=== PATIENT | male | born 1950 | race Caucasian/White ===

== ENCOUNTER 2018-12-27 10:20 | Inpatient (IN) | payer OTHER, MEDICARE ==
[~2018-12-27] VITALS: Ht 170.2 cm; Wt 84.5 kg
[2018-12-27] VITALS (28 sets, daily range): BP systolic 79–110; BP diastolic 24–80
[~2018-12-27 10:20] MED LIST: ADULT LOW DOSE81 MG PO; CARVEDILOL25 MG PO; COUMADIN 5 MG TA5 M1 PO; CRESTOR5 MG PO; HYDROCODONE-AP1 EAC6 PO; KEFLEX500 MG PO; LOVENOX; OMEPRAZOLE20 MG PO; VALIUM5 MG PO; VASOTEC5 MG PO
[2018-12-27 10:45] LABS: BASOPHILS 0.6 % (0.0-2.0); EOSINOPHILS 0.6 % (0.0-3.0); HEMATOCRIT 24.7 % (42.0-52.0); HEMOGLOBIN 8.1 gm/dL (14.0-18.0); LYMPHOCYTES 17.7 % (24.0-44.0); MCH 32.4 pg (26.0-34.0); MCHC 32.7 g/dL (28.0-37.0); MCV 99.2 fL (80.0-100.0); MONOCYTES 5.7 % (1.0-8.0); PLATELET COUNT 225 thou/uL (150-400); POLYS 75.4 % (36.0-66.0); RBC 2.49 mil/uL (4.50-6.00); RDW 17.5 % (10.5-14.5); WBC 13.3 thou/uL (4.0-11.0)
[2018-12-27 10:54] LABS: APTT 33.1 Seconds (24.5-32.8); INR 2.3; PROTIME 23.6 Seconds (9.3-11.4)
[2018-12-27 10:55] LABS: ALBUMIN 2.8 g/dL (3.4-5.0); CREATININE 1.6 mg/dL (0.7-1.3); POTASSIUM 4.5 mmol/L (3.5-5.1); TOTAL BILIRUBIN 0.4 mg/dL (<0.1-1.0); TOTAL PROTEIN 6.4 g/dL (6.4-8.2)
[2018-12-27 11:00] LABS: CALCIUM 8.8 mg/dL (8.5-10.1)
[2018-12-27] MEDS ORDERED: OCUVITE TABLET1 EAC1 PO (11:03)
[2018-12-27] MEDS ORDERED: IRON325 PO (11:03)
[2018-12-27] MEDS ORDERED: ZOCOR20 MG PO (11:03)
[2018-12-27] MEDS ORDERED: ZINC30 MG PO (11:04)
--- NOTE | 2018-12-27 11:04 | NUR ---
PT. RECTAL TEMPERATURE =94.8. ESSIE WHITFIELD MADE AWARE. IV ACCESS TEAM IN ROOM TO INSERT SECOND IV.
[2018-12-27 11:20] LABS: ANISOCYTOSIS 1+; LARGE PLATELETS FEW
--- NOTE | 2018-12-27 12:05 | NUR ---
DR. ASH HERE TO SPEAK WITH PATIENT.
--- NOTE | 2018-12-27 12:46 | NUR ---
PT. RECEIVING 1ST UNIT PRBC ORDERED. WILL CONT. TO MONITOR CLOSELY AND ASSESS FOR ANY CHANGES
--- NOTE | 2018-12-27 13:31 | NUR ---
PT. CONT. IN ER. PT. APPEARS TO BE STABILIZING PRBC ARE INFUSING. PT. ORAL TEMP. IS 97.4 AT THIS TIME. PRIOR TO TRANSFUSION, PT. RECTAL TEMP. WAS 96.1. PT. REPORTS HE IS WARMING UP AND IS NOT COLD HE WAS WITH ARRIVAL.
--- NOTE | 2018-12-27 14:07 | NUR ---
ATTEMPTED TO CALL REPORT TO ICU. TOLD RECEIVING RN WILL CALL BACK.
[2018-12-27 17:39] LABS: INR 2.2; PROTIME 22.4 Seconds (9.3-11.4)
[2018-12-27 18:00] LABS: URINE BILIRUBIN NEGATIVE (Negative); URINE BLOOD NEGATIVE (Negative); URINE CLARITY CLEAR; URINE COLOR YELLOW; URINE GLUCOSE-RANDOM* NEGATIVE (Negative); URINE KETONES NEGATIVE (Negative); URINE LEUKOCYTES-REFLEX NEGATIVE (Negative); URINE NITRITE-REFLEX NEGATIVE (Negative); URINE PROTEIN (DIPSTICK) TRACE (Negative); URINE SPECIFIC GRAVITY >= 1.030 (1.005-1.035); URINE UROBILINOGEN 0.2 E.U./dl (0.2-1.0)
--- NOTE | 2018-12-27 19:38 | NUR ---
Patient arrived to room 239 from ED via cart. Arrives awake, alert, denies pain, nausea, or shortness of breath. First unit of PRBCs had finished from ED nurse prior to arrival, saline flush infusing. Continues on protonix gtt as ordered. BP soft, but MAP > 60 initially, trending down slightly as the afternoon went on. Repeat labs done, hgb dropped, little change in INR following vitamin K. Brother Ed at bedside, answered all questions. Patient has had 2 bloody episodes from rectum, clots noted. Report given to oncoming RN. Continue to monitor.
[2018-12-27] MEDS ORDERED: AMBIEN 5 MG TABL5 M1 PO (19:59)
[2018-12-27] MEDS ORDERED: CENTRUM SILVER1 EAC4 PO (20:00)
[2018-12-28] VITALS (62 sets, daily range): BP systolic 80–159; BP diastolic 28–104
[2018-12-28 00:58] LABS: HEMATOCRIT 21.6 % (42.0-52.0); HEMOGLOBIN 7.2 gm/dL (14.0-18.0)
[2018-12-28 00:59] LABS: INR 1.5; PROTIME 15.7 Seconds (9.3-11.4)
[2018-12-28 01:01] LABS: CALCIUM 7.8 mg/dL (8.5-10.1); CREATININE 1.4 mg/dL (0.7-1.3); MAGNESIUM 1.5 mg/dL (1.8-2.4); POTASSIUM 4.1 mmol/L (3.5-5.1)
--- NOTE | 2018-12-28 06:04 | NUR ---
RECEIVED CALL FROM DIRECT RADIOLOGY- [facility] RADIOLOGY SCAN RESULTS. "ABNORMAL BLEEDING WITH ACTIVE BLEEDIN GIN RIGHT LOWER QUADRANT IN EXPECTED LOCATION OF THE SECUM" THIS RN CALLED ICU, POD 1 AND GAVE RESULTS TO INFORMATION SYSTEMS PROFESSOR
[2018-12-28 06:08] LABS: HEMOGLOBIN 6.6 gm/dL (14.0-18.0)
[2018-12-28 06:11] LABS: HEMATOCRIT 19.6 % (42.0-52.0)
[2018-12-28 06:20] LABS: INR 1.3; PROTIME 13.2 Seconds (9.3-11.4)
--- NOTE | 2018-12-28 08:00 | NUR ---
PT ADMITTED YESTERDAY FOR GI BLEED. ASSUMED CARE OF PT AT 1900. UNIT OF PRBC AND UNIT OF FFP TRANSFUSED. PT'S BP SOFT, BUT IMPROVED SLOWLY WITH TRANSFUSIONS. PT HAD TWO MAROON BMs EARLIER IN THE SHIFT. GI CALLED AND UPDATED ON PT'S CONDITION. BLEEDING SCAN ORDERED. NUC MED CAME IN AND PREFORMED BLEEDING SCAN AROUND 0200. RESULTS OF ABNORMAL BLEEDING SCAN WITH ACTIVE BLEEDING CALLED TO ICU SHORTLY AFTER 0600. RESULTS CALLED TO DR. ROSS, WHO SUGGESTED WE CONTACT DR. ASH AFTER 0700 TO DECIDE ON THE PLAN OF CARE. DR. ASH CALLED AT 0800, SPOKE TO ANSWERING SERVICE, WHO WILL PAGE PHYSICIAN. PT'S HGB 6.6 THIS MORNING. RESULTS REPORTED TO KI SUMMERS; ORDERS TO TRANSFUSE 1 UNIT PRBC AND HOLD 2 MORE UNITS OF PRBC. PT'S BP MUCH IMPROVED, WITH THE MAP CONSISTENTLY OVER 65. WILL CONTINUE TO MONITOR.
[2018-12-28 11:47] LABS: HEMATOCRIT 22.2 % (42.0-52.0); HEMOGLOBIN 7.4 gm/dL (14.0-18.0)
--- NOTE | 2018-12-28 11:50 | EKG ---
[address] [address] ELECTROCARDIOGRAM REPORT Name: ENMABHAVANISHENCHI Siomara Room #: 239-P ADM IN M.R.#: [id number] ������������������ Admission: 12/27/18 ������������������ Attend Phys: Marizol Pepe Discharge: ������������������ Date of : 50 Report #: [id number] ����������������������������������������������������������������� [id number] THIS REPORT FOR: //name// [facility] ED Test Date: 2018-12-27 Test Time: 10:36:54 Pat Name: CHI MENARD Department: Room: Gender: M Environmental Compliance Inspector: 12 : 1950 Requested By: Jennifer Garcia Order Number: [id number] MD: Mihai Pan Measurements Intervals Parnell Rate: 79 P: 45 GA: 170 QRS: -69 QRSD: 87 T: 159 QT: 407 QTc: 467 Interpretive Statements Sinus rhythm Inferior infarct, old Abnrm T, consider ischemia, anterolateral lds Compared to ECG 01/10/2010 08:02:54 Myocardial infarct finding still present Electronically Signed On 12-28-2018 11:50:43 CDT by Mihai Pan [email or web address] ��������������������������������������������� <ELECTRONICALLY SIGNED> ���������������������������������������� By: Mihai Pan MD ��������������������������������������������� 12/28/18 1150 35 Mihai Pan MD /GREZGORZ
[2018-12-28 17:30] LABS: HEMATOCRIT 21.4 % (42.0-52.0); HEMOGLOBIN 7.4 gm/dL (14.0-18.0)
[2018-12-28 17:44] LABS: APTT 27.8 Seconds (24.5-32.8); INR 1.1; PROTIME 11.4 Seconds (9.3-11.4)
--- NOTE | 2018-12-28 19:59 | NUR ---
SHIFT SUMMARY PATIENT STATUS IMPROVED THROUGHOUT THE DAY. MAP IMPROVED. HEMAGLOBIN STABLE AT 7.4 AFTER 1UPRBC'S INFUSED. HEPARIN DRIP STARTED THIS EVENING FOR INR OF 1.1 AND PATIENT HAS A PROSTETIC MITRAL VALVE. DR ASH IN THIS AM AND DISCUSSED POC TO INCLUDE A COLONOSCOPY ON 12/29. ORDERS NOTED. ZOFRAN GIVEN AND GOLYTE STARTED. PATIENT CONSUMING DRINK WITHOUT NAUSEA OR EMESIS. PATIENT HAD 2 BLOODY STOOLS TODAY. LESS RESTLESS THIS AFTERNOON. VISITING WITH BROTHER AND WATCHING TV. REASSURANCE GIVEN AND QUESTIONS ANSWERED.
[2018-12-28 22:46] LABS: HEMATOCRIT 21.8 % (42.0-52.0); HEMOGLOBIN 7.4 gm/dL (14.0-18.0)
[2018-12-29] VITALS (29 sets, daily range): BP systolic 123–160; BP diastolic 55–97
--- NOTE | 2018-12-29 02:05 | NUR ---
ASSUMED CARE OF PT AT 1900 YESTERDAY. PT SCHEDULED TO HAVE COLONOSCOPY TODAY. PREP COMPLETED, PT HAS HAD SEVERAL LARGE LIQUID BMs; LAST BM WAS A LIGHT BROWN/MAROON-CLOSE TO CLEAR. NPO SINCE MN. HEPARIN GTT STARTED AT THE BEGINNING OF THE SHIFT. APTT BEING DRAWN NOW, WILL ADJUST THE GTT ACCORDINGLY. Q4H H&H-LAST HGB WAS 7.4, NO TRANSFUSION INDICATED. PT NEEDED AN ADDITIONAL IV AND WAS DIFFICULT TO START ONE AND DRAW LABS. PICC LINE ORDERED FOR IN THE MORNING. WILL CONTINUE TO MONITOR.
[2018-12-29 02:20] LABS: HEMOGLOBIN 7.1 gm/dL (14.0-18.0); MCH 31.2 pg (26.0-34.0); MCHC 33.8 g/dL (28.0-37.0); RBC 2.28 mil/uL (4.50-6.00); RDW 19.3 % (10.5-14.5); WBC 11.1 thou/uL (4.0-11.0)
[2018-12-29 02:21] LABS: MCV 92.1 fL (80.0-100.0)
[2018-12-29 02:32] LABS: ALBUMIN 2.8 g/dL (3.4-5.0); CREATININE 1.2 mg/dL (0.7-1.3); MAGNESIUM 1.8 mg/dL (1.8-2.4); PHOSPHORUS 3.2 mg/dL (2.5-4.9); POTASSIUM 4.1 mmol/L (3.5-5.1)
[2018-12-29 02:34] LABS: PROTIME 10.8 Seconds (9.3-11.4)
[2018-12-29 02:37] LABS: APTT 38.5 Seconds (24.5-32.8)
[2018-12-29 05:56] LABS: HEMOGLOBIN 6.9 gm/dL (14.0-18.0)
[2018-12-29 06:01] LABS: HEMATOCRIT 19.7 % (42.0-52.0)
--- NOTE | 2018-12-29 07:03 | NUR ---
NO SIGNS OF BLEEDING THE REMAINDER OF THE NIGHT. PT'S BMs THIS MORNING WERE YELLOW/CLEAR AND LIQUID. CRITICAL HCT AND HGB 6.9 THIS MORNING. CRITICAL RESULTS CALLED TO KULWINDER BARTH NP. PT ALREADY HAS ORDER TO TRANSFUSE 1 UNIT PRBCs IF HBG < 7.0. IMPORT AND EXPORT CLERK APPROVED WAITING TILL PT HAS PICC LINE PLACED TO TRANSFUSE, DUE TO LACK OF ACCESS. APTT 38.5 EARLIER THIS MORNING, HEPARIN GTT INCREASED PER PROTOCOL; NO BOLUS GIVEN-PT IS TO HAVE NO HEPARIN BOLUSES. PT REMAINS ON PROTONIX GTT. PT WILL HAVE COLONOSCOPY TODAY. WILL CONTINUE TO MONITOR.
[2018-12-29 12:26] LABS: HEMATOCRIT 24.1 % (42.0-52.0); HEMOGLOBIN 8.4 gm/dL (14.0-18.0)
[2018-12-29 12:30] LABS: MAGNESIUM 1.9 mg/dL (1.8-2.4)
--- NOTE | 2018-12-29 13:36 | NUR ---
ASSUMED CARE OF PT AT 0700. PLAN FOR LOWER GI SCOPE TODAY. NPO SINCE MIDNIGHT. PT UPSET AND SAYS THAT HE IS STARVING. HEPARIN GTT OFF AT 0800, MUST BE OFF X4H BEFORE SCOPE. CHANGE PROTONIX TO BID AND GIVEN 1X LASIX. GI PANS FOR NOON SCOPE. ISSUE FINDING LATEST INTERROGATION OF AICD, SCOPE PUSHED BACK TO 1400. PT NOT HAPPY AND THREATENED TO LEAVE AMA. I ENCOURAGED PT TO STAY AND GET SCOPE SO THAT HE WOULD BE BETTER WHEN HE DC HOME. GI REHABILITATION THERAPY TECHNICIAN CAME TO SPEAK WITH PT, HE IS MORE CALM NOW. WANTS A CHEESEBURGER. HANDED OFF PT TO MARIA DEL CARMEN FOR THE REST OF THE DAY.
--- NOTE | 2018-12-29 13:45 | NUR ---
ASSUMED CARE AT 1330. REPORT RECIEVED FROM KUSUM BRUCE. AWAKE AND ALERT, WAITING FOR TRANSPORT TO TAKE HIM FOR COLONOSCOPY. SR ON MONITOR. NO COMPLAINTS OF PAIN OR NAUSEA OR DIZZINESS. WILL CONTINUE TO MONITOR
--- NOTE | 2018-12-29 15:32 | NUR ---
PT ADMITTED RELATED TO RECTAL BLEEDING. CM REVIEWED CHART AND SPOKE WITH CARE TEAM. CM MET WITH PT AT BEDSIDE THIS DAY. PT IS A&O X4. CM ROLE INTRODUCED. PT INDICATED HE HAD BEEN LIVING IN A HOUSE, APARTMENT, AND ANOTHER SETTING DIGITAL PRODUCTION ARTIST. 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 PT INDICATED HE SEES [facility]OL DIE MAKER GOLDEN SCOTT FOR HIS PCP. PT INDICATED HE PLANS TO RETURN TO HIS PRIOR LIVING SETTING ONCE MEDICALLY STABLE. PT INDICATED HE WAS FRUSTRATED THAT HIS COLONOSCOPY WAS DELAYED A FEW TIMES THIS DAY. CM INDICATED THAT CM COULD NOTIFY PATIENT REP MILES TO FOLLOW UP WITH HIS REGARDING CONCERNS. CM CALLED AND NOTIFIED MILES. HE WILL FOLLOW UP WITH PT AFTER HIS PROCEDURE. CM TO FOLLOW INDICATED WITH DC PLANNING.
[2018-12-29 19:26] LABS: HEMATOCRIT 23.1 % (42.0-52.0); HEMOGLOBIN 8.1 gm/dL (14.0-18.0)
--- NOTE | 2018-12-29 19:26 | NUR ---
COLONOSCOPY COMPLETED, 2 AVM'S IN CECUM CAUTERIZED AND SOME POLYPS REMOVED. HEART HEALTHY DIET. RICHARD TLC WITH ALL PORTS PATENT AND GOOD BLOOD RETURN. OOB WITH STANDBY TO BSC.
[2018-12-30] VITALS (19 sets, daily range): BP systolic 111–165; BP diastolic 39–79
--- NOTE | 2018-12-30 05:24 | NUR ---
[facility] PT STATES HE FEELS GOOD, READY TO GO HOME. VS WNL DURING NOC. NO STOOLS, N/V. COLT PO FLUIDS. VOIDS PER URINAL. AM LABS PENDING. CONT PLAN OF CARE
[2018-12-30 05:33] LABS: HEMOGLOBIN 7.6 gm/dL (14.0-18.0); MCH 31.4 pg (26.0-34.0); MCHC 34.6 g/dL (28.0-37.0); MCV 90.5 fL (80.0-100.0); RBC 2.43 mil/uL (4.50-6.00); RDW 18.4 % (10.5-14.5); WBC 8.8 thou/uL (4.0-11.0)
[2018-12-30 05:35] LABS: CALCIUM 8.1 mg/dL (8.5-10.1); CREATININE 1.1 mg/dL (0.7-1.3); POTASSIUM 3.6 mmol/L (3.5-5.1)
[2018-12-30 05:37] LABS: PROTIME 10.7 Seconds (9.3-11.4)
--- NOTE | 2018-12-30 13:36 | P ---
[facility] [place] [address] [address] PROCEDURE REPORT Name: CHI MENARD V Room #: 239-P [facility] IN M.R.#: [id number] Admission: 12/27/18 ������������������ Attend Phys: Marizol Pepe Discharge: ������������������ Date of : 50 Report #: [id number] THIS REPORT FOR: //name// CC: [facility] physician/PCP Marizol Pepe BRIEF HISTORY: The patient is a 68-year-old male who presented with GI bleeding, on anticoagulation. Bleeding scan was positive in the cecum/ascending colon. He has a history of cecal and ascending colon AVM, treated by Dr. Knutson several years ago. PREOPERATIVE DIAGNOSIS: Recurrent gastrointestinal bleeding, on anticoagulation. POSTOPERATIVE DIAGNOSES: 1. Cecal AVMs x 2. 2. Multiple colon polyps. 3. Rectal polyp. 4. Diverticulosis coli. MEDICATIONS: Deep sedation with propofol per anesthesia. SPECIMENS: 1. Proximal ascending colon polyps x 2. 2. Polyp, hepatic flexure. 3. Polyps, transverse colon x 2. 4. Rectal polyp. ESTIMATED BLOOD LOSS: 5 mL. PROCEDURE: Colonoscopy to cecum and terminal ileum, with snare polypectomy, biopsy and hemostasis. FINDINGS: Prior to propofol sedation, procedure of colonoscopy was discussed with the patient as well as potential risks and its complications. He indicates he understands and desires to proceed. With the patient in the left lateral decubitus position, digital examination was completed, which revealed no abnormalities. Subsequently, the Olympus video colonoscope was introduced into the rectum and advanced under direct vision to the cecum. Done with minimal difficulty. The cecum was identified by the ileocecal valve and the appendiceal orifice. I was able to advance the tip of the scope into the mouth of the ileocecal valve and I could see villi, but due to looping, the scope would not pass deeply into the ileum. At that point, the scope was slowly withdrawn and careful circumferential views obtained. Upon slow withdrawal of the scope, there were some limitations with bilious material in the proximal colon. We were able to clean much this up and overall [facility] [address] [place] [address] PROCEDURE REPORT Name: CHI MENARD V Room #: 239-P [facility] IN M.R.#: [id number] Admission: 12/27/18 ������������������ Attend Phys: Marizol Pepe Discharge: ������������������ Date of : 50 Report #: [id number] reasonably good prep was obtained. The mucosa was within normal limits, normal vascular pattern, normal light reflex. In the cecum, 2 AVMs were seen. Neither one of them were bleeding. The largest was about 7-8 mm. The other was about 5 mm. The largest one treated first and with application of the BiCap, there was some oozing of bright red blood. This was quickly controlled and bleeding was not an issue. The second one was treated without any bleeding whatsoever. Both of them were destroyed with a BiCap probe. As we withdrew the scope, 2 polyps were seen in the ascending colon. They were both about 5 mm in size, removed by cold snare polypectomy. A diminutive polyp was removed from hepatic flexure and 2 diminutive polyps removed from the mid transverse colon. Scope was further withdrawn and there was noted to be moderate sigmoid diverticular disease without endoscopic evidence of diverticulitis. In the rectum, a 5-6 mm sessile polyp was seen and removed by cold snare polypectomy. Scope was further withdrawn, no additional abnormalities were seen. Upon retroflexion, no abnormalities were seen. Scope was withdrawn and the patient tolerated the procedure well. CONDITION OF THE PATIENT UPON DISCHARGE: Following the procedure, the patient drowsy, aroused, conversant and will be discharged home when fully ambulatory. INSTRUCTIONS TO THE PATIENT AND FAMILY AT THE TIME OF DISCHARGE: Nonbleeding AVMs were seen. They have been noted before in the past. These correlate with the abnormal bleeding scan. They were of significant size and likely the sites of his recent bleeding. He also had multiple polyps removed today. We will follow up the path and make further recommendations. In summary, if three or more polyps are adenomas, return in 3 years; if only 1 or 2 adenomas, then 5 years; if by chance none are adenomas, then 10 years would be indicated. The patient has been on anticoagulation. Ideally, we would like to hold anticoagulation for a short period of time since multiple polyps were removed and BiCap cautery was used in the patient's colon. ��������������������������������������������� <ELECTRONICALLY SIGNED> ���������������������������������������� By: Tarik Godinez MD ��������������������������������������������� 12/30/18 1336 1635 0113 Tarik Godinez MD /nt
[2018-12-30 16:48] LABS: HEMATOCRIT 22.3 % (42.0-52.0); HEMOGLOBIN 7.7 gm/dL (14.0-18.0)
--- NOTE | 2018-12-30 18:39 | NUR ---
PATIENT A&O X 4, PLEASANT AND COOPERATIVE WITH CARES. DENIES PAIN. PATIENT ON HEPARIN DRIP AT THIS TIME, APTT STILL NOT THERAPUTIC AT THIS TIME. WILL CONTINUE TO MONITOR.NO BLOODY STOOLS NOTED. HGB IS STABLE AT THIS TIME. PATIENT HAS GOOD APPETITE. ADEQUATE URINE OUTPUT. NO FURTHER CONCERNS AT THIS TIME. WILL CONTINUE TO MONITOR AND CARE PER PLAN OF CARE.
--- NOTE | 2018-12-30 22:31 | NUR ---
GCS 15. A&O X3-4. FORGETFUL. FC, MCKENNA. SINUS RHYTHM, V PACED AT TIMES. O2 SAT > 96% ON 2L PER NC. DENIES SOA. NO BM SO FAR THIS SHIFT. PT PASSING FLATUS. VOIDS PER URINAL. ADEQUATE URINE OUTPUT. UP TO BSC X1 ASSIST. PT ROUTINELY RE-EDUCATED RE: FALL PREVENTION. HIGH RISK FALL PRECAUTIONS IN PLACE. TITRATING HEPARIN GTT PER PROTOCOL. VITAL SIGNS AND ASSESSMENTS DOCUMENTED. WILL CONTINUE TO MONITOR.
[2018-12-31] VITALS (22 sets, daily range): BP systolic 105–162; BP diastolic 53–81
[2018-12-31 05:13] LABS: HEMATOCRIT 22.4 % (42.0-52.0); HEMOGLOBIN 7.7 gm/dL (14.0-18.0); MCH 31.6 pg (26.0-34.0); MCHC 34.4 g/dL (28.0-37.0); MCV 91.8 fL (80.0-100.0); RBC 2.44 mil/uL (4.50-6.00); RDW 18.6 % (10.5-14.5); WBC 8.6 thou/uL (4.0-11.0)
[2018-12-31 05:17] LABS: PROTIME 10.7 Seconds (9.3-11.4)
--- NOTE | 2018-12-31 10:01 | HC ---
[facility] [place] [address] [place] [address] CONSULTATION Name: CHI MENARD V Room #: 239-P ADM IN M.R.#: [id number] Admission: 12/27/18 ������������������ Attend Phys: Marizol Pepe Discharge: ������������������ Date of : 50 Report #: [id number] THIS REPORT FOR: //name// CC: [facility] physician/PCP Marizol Pepe DATE OF SERVICE: 12/27/2018 CARDIOLOGY CONSULTATION INDICATION: GI bleed/anticoagulation therapy. HISTORY OF PRESENT ILLNESS: This is a 68-year-old gentleman well known to our service. He has a prior history of inferior wall NV with severe mitral regurgitation undergoing 1-vessel CABG and mechanical mitral valve replacement in 2008. History of ischemic cardiomyopathy, hypertension, ICD, paroxysmal atrial fibrillation, GI bleed, hypercholesterolemia and peripheral vascular disease. He presents with complaints of bloody stools for the past day or so. From a cardiac standpoint, he remained stable with no complaints of angina, dyspnea or lightheadedness. On initial evaluation, the hemoglobin was 8.1, down to 6.6 today. The initial INR was 2.3, in the therapeutic range. PAST MEDICAL HISTORY: CABG and MVR in 2008. Nuclear stress test from November 2018 revealed inferolateral infarct, EF of 35% -40%. ICD, PAF. Prior history of lower GI bleed, attributed to AVMs, hypertension and peripheral vascular disease. ALLERGIES: INCLUDE AUGMENTIN AND BACTRIM. MEDICATIONS AT HOME: Include aspirin 81, Coreg 25 twice a day, Vasotec 5 mg b.i.d., Prilosec, simvastatin 20 mg at night, warfarin as directed. SOCIAL HISTORY: Denies tobacco use. FAMILY HISTORY: Negative for premature CAD. REVIEW OF SYSTEMS: A full 10-point review of systems performed. Only the pertinent positives and negatives are described in the HPI. PHYSICAL EXAMINATION: VITAL SIGNS: Blood pressure is 118/70, heart rate is 70 beats per minute. GENERAL APPEARANCE: This is a well-developed, well-nourished male, in no acute distress. HEENT: Normocephalic, atraumatic. Oral mucosa moist. NECK: Supple. LUNGS: Clear to auscultation. [facility] [address] [place] [address] CONSULTATION Name: DERIANCHI Siomara Room #: 239-P [facility] IN [facility].#: [id number] Admission: 12/27/18 ������������������ Attend Phys: Marizol Pepe Discharge: ������������������ Date of : 50 Report #: [id number] CARDIAC: Regular rate and rhythm, S1, S2 positive. ABDOMEN: Soft, nontender. EXTREMITIES: No cyanosis, no edema. ECG reveals sinus rhythm, T-wave inversions laterally. LABORATORY VALUES: Hemoglobin 6.6 from today. INR is 1.5. Creatinine is 1.4. ASSESSMENT AND PLAN: 1. Lower gastrointestinal bleed, warfarin and aspirin are on hold. He was given FFP and is currently undergoing a transfusion. Await gastroenterology evaluation. 2. Mechanical mitral valve replacement, stable with no complaints of dyspnea or congestion. Recent echocardiogram reveals a normal functioning valve. Anticoagulation is temporarily on hold for now until his bleeding issues have resolved. 3. Coronary artery disease/myocardial infarction, coronary artery bypass graft, stable with no anginal complaints. 4. Paroxysmal atrial fibrillation, remains in sinus rhythm. 5. Hypercholesterolemia, continue statin therapy. ��������������������������������������������� <ELECTRONICALLY SIGNED> ���������������������������������������� By: Mihai Pan MD ��������������������������������������������� 12/31/18 1001 0948 2210 Mihai Pan MD /nt
--- NOTE | 2018-12-31 10:42 | NUR ---
Pt's son at bedside requesting snf list for their review should the pt need a skilled rehab stay [place]. Listing provided. Will ask for therapy evals.
--- NOTE | 2018-12-31 11:03 | NUR ---
Pt remains in ICU with orders to transfer to CCU later today. Pt is doing well and does not anticipate any dc planning needs. Will ask for PT eval. Pt is in good spirits and has family visiting this morning. Will follow.
--- NOTE | 2018-12-31 17:10 | PATH ---
[facility] [place] [address] PATHOLOGY RPT PROCEDURE Name: RAAD MARTINEZ V Room #: 239-P ADM IN M.R.#: [id number] ������������������ Admission: 12/27/18 ������������������ Date of : 50 Discharge: Report #: [id number] Path Case #: [id number] [facility] Accession Number: [id number] . 01 Material submitted: . PART A: colon - POLYP AT PROXIMAL ASCENDING COLON X2. Modifiers: proximal, ascending PART B: colon - BX POLYP AT HEPATIC FLEXURE. Modifiers: mid, transverse PART C: colon - BX POLYP AT MID TRANSVERSE COLON X2. Modifiers: transverse, mid PART D: rectum - POLYP AT RECTUM . 01 Clinical history: . Preop DX: GI bleed Postop DX: Cecal AVM, colon polyp, diverticulosis, rectal polyp . 02 Diagnosis: A. Polyp x2, at proximal ascending colon, endoscopic biopsy: - Both fragments showing tubular adenoma. - Negative for high-grade dysplasia. . B. Polyp, at hepatic flexure, endoscopic biopsy: - Tubular adenoma. - Negative for high-grade dysplasia. . C. Polyp x2, mid transverse colon, endoscopic biopsy: - All fragments showing tubular adenoma. - Negative for high-grade dysplasia. . D. Polyp, at rectum, endoscopic biopsy: - Hyperplastic polyp. - Negative for dysplasia. . ([facility]ister winder; 12/31/2018) MBR/12/31/2018 . 02 Electronically signed: . Aileen Nazario MD, Pathologist NPI- [id number] . 01 Gross description: . A. Received in formalin labeled "Raad Martinez, polyp at proximal ascending colon x2," are two polypoid segments of napoles-brown soft tissue measuring 0.8 x 0.4 x 0.2 cm (inked black) and 0.9 x 0.4 x 0.3 cm (inked yellow) in greatest dimensions. Both segments are bisected and submitted entirely in cassette A1. . [address] [address] PATHOLOGY RPT PROCEDURE Name: RAAD MARTINEZ V Room #: 239-P [facility] IN .R.#: [id number] ������������������ Admission: 12/27/18 ������������������ Date of : 50 Discharge: Report #: [id number] Path Case #: [id number] B. Received in formalin labeled "Rada Martinez, polyp at hepatic flexure," are three segments of napoles soft tissue ranging from 0.2 x 0.2 x 0.2 cm to 0.3 x 0.2 x 0.1 cm in greatest dimensions. The specimen is submitted entirely in cassette B1. . C. Received in formalin labeled "Raad Martinez, Bx polyp at mid transverse colon x2," are two segments of pale napoles soft tissue measuring 0.3 x 0.1 x 0.1 cm and 0.3 x 0.3 x 0.3 cm in greatest dimensions. The specimen is submitted entirely in cassette C1. . D. Received in formalin labeled "Raad Martinez, polyp at rectum," is a segment of napoles soft tissue measuring 0.6 x 0.4 x 0.3 cm in greatest dimensions. The surgical margin is inked, and the specimen is bisected and submitted entirely in cassette D1. ([facility]; 12/30/2018) XDC/XDC . 02 Pathologist provided ICD-10: D12.2, D12.3, K62.1 . 02 CPT . 739748, 945715, 547275, 272629 Specimen Comment: A courtesy copy of this report has been sent to Specimen Comment: [phone], . Specimen Comment: Report sent to / DR BARAJAS Performed at: [address], [place], [place] [id number] MD Brian Giordano MD Phone: [phone] Performed at: [address] [id number] MD Aileen Nazario MD Phone: [phone]
--- NOTE | 2018-12-31 18:41 | NUR ---
PATIENT A&O X 4, PLEASANT AND COOPERATIVE WI CARES. DENIES PAIN. NO SOB NOTED. UP WITH SBA. WORKED WITH PHYSICAL THERAPY AND WAS ABLE TO WALK AROUND THE ENTIRE UNIT.PATIENT HAD A SMALL BM THIS EVENING, NO BLOOD NOTED. CONTINUES ON HEPRIN DRIP, MONITORING APTT. NO FUTHER CONCERNS AT THIS TIME. WILL CONTINUE TO MONITOR AND CARE PER PLAN OF CARE.
[2019-01-01] VITALS (7 sets, daily range): BP systolic 124–147; BP diastolic 56–80
--- NOTE | 2019-01-01 03:15 | NUR ---
GCS 15. A&O X3-4. FC, MCKENNA. FORGETFUL. SINUS RHYTHM WITH PAC AND PVC ON MONITOR. PT TOLERATES ROOM AIR. DENIES SOA. TOLERATING PO INTAKE. NO BM THIS SHIFT. AMBULATES TO TOILET WITH STANDBY ASSIST. VOIDS PER URINAL. ADEQUATE URINE OUTPUT. TITRATING HEPARIN GTT PER PROTOCOL. VITAL SIGNS AND ASSESSMENTS DOCUMENTED. WILL CONTINUE TO MONITOR.
[2019-01-01 05:47] LABS: HEMATOCRIT 23.8 % (42.0-52.0); HEMOGLOBIN 8.1 gm/dL (14.0-18.0); MCH 31.4 pg (26.0-34.0); MCHC 34.1 g/dL (28.0-37.0); MCV 92.1 fL (80.0-100.0); RBC 2.58 mil/uL (4.50-6.00); RDW 18.1 % (10.5-14.5); WBC 8.3 thou/uL (4.0-11.0)
[2019-01-01 05:58] LABS: PROTIME 10.2 Seconds (9.3-11.4)
[2019-01-01 05:59] LABS: APTT 28.4 Seconds (24.5-32.8)
--- NOTE | 2019-01-01 12:21 | NUR ---
ASSUMED CARE @ 0700 01/01/19, PT ASSESSMENTS AND VSS COMPLETE PER CCU ORDERS. PT ALERT AND ORIENTED X 4, PT ABLE TO FOLLOW ALL COMMANDS. PT SR WITH PVC'S AND PAC'S ON THE MONITOR. PT ON RA, SATS IN THE HIGH 90'S. PT ON A HEART HEALTHY DIET, NO STOOLS THIS SHIFT. PT ABLE TO USE URINAL TO VOID. REPORT GIVEN TO ZAID NOE, PLAN OF CARE- CONT TO MONITOR.
--- NOTE | 2019-01-01 15:28 | NUR ---
ASSUMED CARE OF PATIENT AT 1300 FROM ICU. PATIENT IS A&O X 4. TELE PLACED ON PATIENT. ASSESSMENT COMPLETED. APTT RESULTS RECEIVED AND HEPARIN ADJUSTED, PLEASE SEE HEPARIN INTERVENTION IN EMR. PATIENT IS RESTING COMFORTABLY. CALL LIGHT IS WITHIN REACH. PATIENT'S LUNCH WAS BROUGHT FROM ICU. PATIENT IS TO CONTINUE WITH POC.
--- NOTE | 2019-01-01 18:08 | NUR ---
THIS PATIENT CONTINUES ON A HEPARIN GTT, MG REPLACEMENT AND FREQUENT BLOOD DRAWS. THIS PATIENT MAY BE APPROPRIATE TO TRANSITION TO A MIDLINE OR PIV SOON
--- NOTE | 2019-01-01 18:34 | NUR ---
ASSUMED CARE OF PATIENT AT 1300 FROM ICU. ASSESSMENTS COMPLETED. PATIENT HAS HEPARIN DRIP RUNNING. HE IS RESTING COMFORTABLY IN BED WITH HIS CALL LIGHT ON HIS LAP. PATIENT IS TO CONTINUE WITH POC.
[2019-01-02 00:38] VITALS: BP 126/69
[2019-01-02 03:45] VITALS: BP 112/70
--- NOTE | 2019-01-02 04:29 | NUR ---
RECEIVED PT'S CARE AT 1920; PT. ON BED; AOX4; DURING ASSESSMENT C/O BACK PAIN; REQUESTED PRN PAIN MEDICATION LATER; BLOOD DRAW AT 1999; APTT THERAPEUTIC; CHECK HEPARIN CHART; REQUESTED PRN PAIN MEDICATION AT 2300; MEDICATION GIVEN; PAIN RE-ASSESSMENT; PT. SLEEPING; ABLE TO REST THROUGH THE NIGHT WITH EYES CLOSE; O2 SAT ABOVE 90%; ASSESSMENT CHARGED; FOLLOWING POC; WILL PASS ON REPORT.
[2019-01-02 05:03] LABS: HEMATOCRIT 22.4 % (42.0-52.0); HEMOGLOBIN 7.5 gm/dL (14.0-18.0); MCH 31.2 pg (26.0-34.0); MCHC 33.6 g/dL (28.0-37.0); MCV 92.9 fL (80.0-100.0); RBC 2.41 mil/uL (4.50-6.00); RDW 18.2 % (10.5-14.5); WBC 8.2 thou/uL (4.0-11.0)
[2019-01-02 05:11] LABS: INR 1.1; PROTIME 11.5 Seconds (9.3-11.4)
[2019-01-02 05:15] LABS: ALBUMIN 2.4 g/dL (3.4-5.0); CALCIUM 8.7 mg/dL (8.5-10.1); CREATININE 1.1 mg/dL (0.7-1.3); PHOSPHORUS 3.6 mg/dL (2.5-4.9); POTASSIUM 3.9 mmol/L (3.5-5.1)
[2019-01-02 08:05] VITALS: BP 104/49
[2019-01-02 11:55] VITALS: BP 105/63
--- NOTE | 2019-01-02 14:27 | NUR ---
ASSUMED CARE AT 0700, SHIFT ASSESSMENT DONE, MEDS GIVEN, VSS. DENIES ANY NAUSEA, VOMITING, PAIN. ON HEPARING DRIP. UP WITH STANDBY ASSIST, ROOM AIR. WILL CONTINUE TO ASSESS AND ASSIST WITH ADLs NEEDED.
--- NOTE | 2019-01-02 15:53 | NUR ---
Possible dc home over the weekend pending his INR becoming theraputic. No dc planning needs indicated at this time. Pt is steady on his feet and is planning on outpt f/u.
[2019-01-02 16:15] VITALS: BP 125/56
[2019-01-02 19:56] VITALS: BP 120/63
[2019-01-03 04:12] VITALS: BP 112/62
[2019-01-03 06:05] LABS: HEMATOCRIT 22.1 % (42.0-52.0); HEMOGLOBIN 7.6 gm/dL (14.0-18.0); MCH 31.9 pg (26.0-34.0); MCHC 34.1 g/dL (28.0-37.0); MCV 93.5 fL (80.0-100.0); RBC 2.37 mil/uL (4.50-6.00); RDW 18.2 % (10.5-14.5); WBC 7.8 thou/uL (4.0-11.0)
[2019-01-03 06:09] LABS: INR 1.2; PROTIME 12.8 Seconds (9.3-11.4)
[2019-01-03 07:55] VITALS: BP 137/75
--- NOTE | 2019-01-03 09:07 | NUR ---
RECEIVED PT'S CARE 1920; PT. ON BED; AOX4; DURING ASSESSMENT C/O PAIN; REFUSED PRN PAIN MEDICATION; REQUESTED PRN PAIN MEDICATION LATER ON THE NIGHT; IV PRN PAIN MEDICATION GIVEN; PAIN RE-ASSESSMENT PT. SLEEPING; APTT WITHIN THERAPEUTIC RANGE; NO CHANGE ON HEPARIN GTT; ABLE REST THROUGH THE NIGHT; ASSESSMENT CHARGED; FOLLOWING POC; PASSED ON REPORT TO KUSUM HEMPHILL.
--- NOTE | 2019-01-03 11:23 | NUR ---
ASSUMED CARE AT 0700, SHIFT ASSESSMENT DONE, MEDS GIVEN, VSS. DENIES ANY PAIN, NAUSEA, VOMITING. ON HEPARIN DRIP, aPTT 67.9, NO CHANGES IN HEPARIN DRIP RATE. UP AND WALKING AROUND THE UNIT THIS AM. WILL CONTINUE TO ASSESS AND ASSIST WITH ADLs NEEDED.
[2019-01-03 11:55] VITALS: BP 126/61
[2019-01-03 15:55] VITALS: BP 122/68
[2019-01-04 04:00] VITALS: BP 105/65
--- NOTE | 2019-01-04 05:01 | NUR ---
ASSUMED PT CARE AT 1900 WITH NO SIGN OF DISTRESS TAKEN. PT IS ALERT AND ORIENTED. NO FAMILY AT BEDSIDE. PT IS COMPLAINING OF PAIN, MORPHINE ADMINISTERED TO PT. ASSESSMENT COMPLETED AND DOCUMENTED. VITAL SIGNS STABLE. PT IS STILL ON HEPARIN DRIP, MONITOR FOR SIGNS OF BLEEDING. SCHEDULED MEDS ADMINISERED TO PT. PT TOLERATED PO INTAKE. PT IS STABLE. PT WEAR CPAP AT BEDTIME. DENIES ANY FURTHER NEEDS AT THIS TIME. CONTINUE TO MONITOR PATIENT.
[2019-01-04 08:01] VITALS: BP 110/69
[2019-01-04 08:39] LABS: INR 1.5; PROTIME 15.3 Seconds (9.3-11.4)
--- NOTE | 2019-01-04 10:44 | NUR ---
VASCULAR ACCESS NURSE ROUNDING. THE PATIENT CONTINUES ON A HEPARIN GTT. LABS ARE NONTHERAPEUTIC AT THIS TIME SO LAB DRAWS ARE FREQUENT. COUMADIN WAS RESTARTED. WE WILL ROUND AGAIN IN THE AM AND REVIEW LABS TO EVALUATE POSSIBLE TRANSITION TO A PIV ACCESS.
[2019-01-04 11:30] VITALS: BP 135/67
--- NOTE | 2019-01-04 14:09 | NUR ---
ASSUMED CARE AT 0700, SHIFT ASSESSMENT DONE, MEDS GIVEN, VSS. DENIES ANY PAIN, NAUSEA, VOMITING. aPTT WAS 69.0 THIS AM AT 0830, WITHIN THE THERAPEUTIC ZONE, NO CHANGES IN RATE, RUNNING AT 12 U/KG/HR, INR IS AT 1.5 TODAY. WALKED AROUND THE UNIT THIS AFTERNOON. CALLS APPROPRIATELY. WILL CONTINUE TO ASSESS AND ASSIST WITH ADLs NEEDED.
[2019-01-04 16:59] VITALS: BP 115/74
[2019-01-04 19:41] VITALS: BP 125/71
[2019-01-05 04:59] VITALS: BP 131/74
--- NOTE | 2019-01-05 05:13 | NUR ---
ASSUMED PT CARE AT 1900 WITH NO SIGN OF DISTRESS NOTED IN PT. PT IS ALERT AND ORIENTED. PT IS STABLE. VITAL SIGNS STABLE. ASSESSMENT COMPLETED AND CHARTED. SCHEDULED MEDS ADMINISTERED TO PT. PT REST COMFORTABLY IN BED DENIES ANY NEEDS AT THIS TIME.
[2019-01-05 06:20] LABS: HEMATOCRIT 22.2 % (42.0-52.0); HEMOGLOBIN 7.5 gm/dL (14.0-18.0); MCHC 33.7 g/dL (28.0-37.0); RBC 2.41 mil/uL (4.50-6.00); RDW 17.7 % (10.5-14.5); WBC 7.5 thou/uL (4.0-11.0)
[2019-01-05 06:30] LABS: INR 1.7; PROTIME 17.8 Seconds (9.3-11.4)
[2019-01-05 06:39] LABS: ALBUMIN 2.6 g/dL (3.4-5.0); CALCIUM 8.5 mg/dL (8.5-10.1); CREATININE 1.1 mg/dL (0.7-1.3); TOTAL BILIRUBIN 0.1 mg/dL (<0.1-1.0); TOTAL PROTEIN 6.3 g/dL (6.4-8.2)
[2019-01-05 07:55] VITALS: BP 91/51
--- NOTE | 2019-01-05 13:53 | NUR ---
Nutrition: pt admitted with rectal bleeding and seen due to LOS. S/P AVM x 2 cauterized. Eating 100% of meals on heart healthy diet. Stable weights. Explained menu ordering and assisted with food preferences. Low risk.
--- NOTE | 2019-01-05 18:43 | NUR ---
PATIENT ASSESSMENT CHARTED, VSS, ALERT AND ORIENTED, NO COMPLAINTS OF PAIN, DISCHARGED TO HOME, PATIENT GIVEN PRESCRIPTIONS AND DISCHARGE INSTRUCTIONS, STATED UNDERSTANDING. LEFT HOSPITAL BY WHEELCHAIR ACCOMPANIED BY SON.
--- NOTE | 2019-01-05 19:18 | NUR ---
ASSESSMENT CHARTED, VSS, ALERT AND ORIENTED, NO COMPLAINTS OF PAIN, AMBULATED IN THE SLADE, WILL CONTINUE TO MONITOR
[2019-01-05 19:46] VITALS: BP 132/62
[2019-01-06 05:15] VITALS: BP 138/95
--- NOTE | 2019-01-06 05:16 | NUR ---
ASSUMED PT CARE AT 1900 WITH NO SIGN OF DISTRESS NOTED. PT IS ALERT AND ORIENTED AND DENIES ANY NEED AT THIS TIME. ASSESSMENT COMPLETED AND CHARTED. NO FAMILY AT BEDSIDE. SCHEDULED MEDS ADMINISTERED. DENIES ANY FURTHER NEEDS AT THIS TIME
[2019-01-06 05:58] LABS: INR 1.8; PROTIME 18.7 Seconds (9.3-11.4)
[2019-01-06 07:49] LABS: HEMATOCRIT 23.5 % (42.0-52.0); HEMOGLOBIN 7.9 gm/dL (14.0-18.0); MCH 31.1 pg (26.0-34.0); MCHC 33.7 g/dL (28.0-37.0); MCV 92.4 fL (80.0-100.0); RBC 2.54 mil/uL (4.50-6.00); RDW 17.8 % (10.5-14.5); WBC 8.4 thou/uL (4.0-11.0)
[2019-01-06 08:00] VITALS: BP 140/93
[2019-01-06 12:20] VITALS: BP 126/65
[2019-01-06 16:25] VITALS: BP 154/87
[2019-01-06 16:52] VITALS: BP 126/65
--- NOTE | 2019-01-06 18:09 | NUR ---
ASSUMED CARE AT SHIFT CHANGE, ALERT AND ORIENTED X4. VSS AND AFEBRILE, WALKED THE HALLWAYS AND STAEDY ON HIS FEET. REMIANS ON HEP GTT AT 10 UNITS/KG/HR, APTT AT THERAPUATIC LEVEL, HE IS PROGRESSING TOWARDS HIS GOALS. WILL CONTINUE WITH POC.
[2019-01-06 20:00] VITALS: BP 172/87
[2019-01-07 04:00] VITALS: BP 108/67
--- NOTE | 2019-01-07 05:33 | NUR ---
ASSUMED PT CARE AT 1900 WITH NO SIGN OF DISTRESS NOTED IN PT. PT IS LAERT AND ORIENTED AND DENIES ANY NEED AT THIS TIME. ASSESSMENT CHARTED AND COMPLETED. SCHEDULED MEDS ADMINISTERED TO PT. VITAL SIGNS STABLE. CONTINUE NURSING POC. PAIN MED ADMINISTERED REQUESTED. DENIES ANY FURTHER NEEDS AT THIS TIME.
[2019-01-07 06:15] LABS: HEMATOCRIT 23.7 % (42.0-52.0); HEMOGLOBIN 7.9 gm/dL (14.0-18.0); MCH 30.7 pg (26.0-34.0); MCHC 33.3 g/dL (28.0-37.0); RBC 2.58 mil/uL (4.50-6.00); RDW 17.4 % (10.5-14.5); WBC 7.8 thou/uL (4.0-11.0)
[2019-01-07 07:24] LABS: INR 2.1; PROTIME 21.7 Seconds (9.3-11.4)
[2019-01-07 09:00] VITALS: BP 133/63
[2019-01-07 11:45] VITALS: BP 123/65
[2019-01-07] MEDS ORDERED: MIRALAX17 GM PO (12:58)
[2019-01-07] MEDS ORDERED: PANTOPRAZOLE SO40 M1 PO (12:58)
[2019-01-07] MEDS ORDERED: ACETAMINOPHEN325 M1 PO (12:58)
[2019-01-07 13:20] VITALS: BP 126/65
--- NOTE | 2019-01-07 14:34 | NUR ---
ASSUMED CARE AT SHIFT CHANGE, ALERT AND ORIENTED. VSS AND SR ON THE MONITOR. DISCHARGE AND MEDICATION INSTRUCTIONS GIVEN TO PATIENT. PICC LINE D/CIED. WAITING FOR RIDE.
== END 2019-01-07 15:26 | disposition home or self-care (01) | DRG 377 ==
LOC: ER 10:20 → ICU 15:00 → ER 15:00 → ICU 15:30 → 2N 01-01 13:06 → ENTRNSPT 01-07 15:17 → EDTRNSPTSTS 01-07 15:20 → 2N 01-07 15:26 → CMPTRNSPT 01-07 15:29
PROVIDERS: Hospitalist; Internal Medicine; Internal Medicine Cardiovascular Disease; Internal Medicine Gastroenterology; Nurse Practitioner Family; Nurse Practitioner Gerontology; Physician Assistant; ADMIT Hospitalist
PROC: 30233K1 Transfusion of Nonautologous Frozen Plasma into Peripheral Vein, Percutaneous Approach (ICD-10-PCS; principal; 2018-12-27)
PROC: 30233N1 Transfusion of Nonautologous Red Blood Cells into Peripheral Vein, Percutaneous Approach (ICD-10-PCS; principal; 2018-12-27)
PROC: 0DBL8ZZ Excision of Transverse Colon, Via Natural or Artificial Opening Endoscopic (ICD-10-PCS; 2018-12-27)
PROC: 0D5H8ZZ Destruction of Cecum, Via Natural or Artificial Opening Endoscopic (ICD-10-PCS; 2018-12-27)
PROC: 0DBP8ZZ Excision of Rectum, Via Natural or Artificial Opening Endoscopic (ICD-10-PCS; 2018-12-27)
PROC: 0DBK8ZZ Excision of Ascending Colon, Via Natural or Artificial Opening Endoscopic (ICD-10-PCS; 2018-12-27)
DX: K55.21 Angiodysplasia of colon with hemorrhage (principal); R57.8 Other shock; E43 Unspecified severe protein-calorie malnutrition; D68.9 Coagulation defect, unspecified; D62 Acute posthemorrhagic anemia; K57.31 Diverticulosis of large intestine without perforation or abscess with bleeding; G89.29 Other chronic pain; M54.9 Dorsalgia, unspecified; I73.9 Peripheral vascular disease, unspecified; F32.9 Major depressive disorder, single episode, unspecified; K21.9 Gastro-esophageal reflux disease without esophagitis; I10 Essential (primary) hypertension; E78.5 Hyperlipidemia, unspecified; I25.10 Atherosclerotic heart disease of native coronary artery without angina pectoris; I48.0 Paroxysmal atrial fibrillation; I25.5 Ischemic cardiomyopathy; E78.00 Pure hypercholesterolemia, unspecified; K63.5 Polyp of colon; Z93.3 Colostomy status; I25.2 Old myocardial infarction; Z95.2 Presence of prosthetic heart valve; Z95.1 Presence of aortocoronary bypass graft; Z68.29 Body mass index [BMI] 29.0-29.9, adult; Z79.899 Other long term (current) drug therapy
CPT/HCPCS: 10078; 10081; 10203; 27000; 62110; 62900; 70005; 85076

== ENCOUNTER → 2019-05-04 | Outpatient (CLI) | payer OTHER, MEDICARE ==
[~2019-05-04] MED LIST changes: +ACETAMINOPHEN325 M1 PO; +AMBIEN 5 MG TABL5 M1 PO; +CENTRUM SILVER1 EAC4 PO; +IRON325 PO; +MIRALAX17 GM PO; +OCUVITE TABLET1 EAC1 PO; +PANTOPRAZOLE SO40 M1 PO; +ZINC30 MG PO; +ZOCOR20 MG PO
== END ==
LOC: RAD 09:11
DX: M47.815 Spondylosis without myelopathy or radiculopathy, thoracolumbar region (principal); M43.8X4 Other specified deforming dorsopathies, thoracic region; M41.86 Other forms of scoliosis, lumbar region; Z88.8 Allergy status to other drugs, medicaments and biological substances

== ENCOUNTER → 2019-05-15 | Outpatient (CLI) | payer OTHER, MEDICARE | LOC: MRI 08:58 → CAT 09:39 → MRI 09:39 | DX: M47.814 Spondylosis without myelopathy or radiculopathy, thoracic region (principal); M46.04 Spinal enthesopathy, thoracic region; Z95.0 Presence of cardiac pacemaker ==

== ENCOUNTER → 2019-11-20 | Outpatient (CLI) | payer OTHER, MEDICARE | LOC: SJCVCIMAG 09:36 | DX: R94.31 Abnormal electrocardiogram [ECG] [EKG] (principal); I08.1 Rheumatic disorders of both mitral and tricuspid valves; I21.19 ST elevation (STEMI) myocardial infarction involving other coronary artery of inferior wall; I11.9 Hypertensive heart disease without heart failure; I25.10 Atherosclerotic heart disease of native coronary artery without angina pectoris; I25.5 Ischemic cardiomyopathy; I48.0 Paroxysmal atrial fibrillation; Z95.0 Presence of cardiac pacemaker ==

== ENCOUNTER → 2020-05-20 | Outpatient (CLI) | payer OTHER, MEDICARE | LOC: SJCVC 10:28 | PROVIDERS: ATTEND Internal Medicine Cardiovascular Disease | DX: R94.31 Abnormal electrocardiogram [ECG] [EKG] (principal); I25.10 Atherosclerotic heart disease of native coronary artery without angina pectoris; I25.5 Ischemic cardiomyopathy; I10 Essential (primary) hypertension; E78.00 Pure hypercholesterolemia, unspecified; I25.2 Old myocardial infarction; K21.9 Gastro-esophageal reflux disease without esophagitis; I73.9 Peripheral vascular disease, unspecified; Z95.1 Presence of aortocoronary bypass graft; Z95.810 Presence of automatic (implantable) cardiac defibrillator; Z79.01 Long term (current) use of anticoagulants; Z79.899 Other long term (current) drug therapy; Z87.891 Personal history of nicotine dependence ==

== ENCOUNTER → 2020-10-12 | Outpatient (CLI) | payer OTHER, MEDICARE ==
[~2020-10-12] MED LIST changes: +FLOMAX0.4 MG PO; +ZANAFLEX4 M1 PO
== END ==
LOC: SJCVCIMAG 06:56
PROVIDERS: ATTEND Internal Medicine Cardiovascular Disease
DX: I49.3 Ventricular premature depolarization (principal); I25.10 Atherosclerotic heart disease of native coronary artery without angina pectoris; I25.5 Ischemic cardiomyopathy; I10 Essential (primary) hypertension; E78.5 Hyperlipidemia, unspecified; I73.9 Peripheral vascular disease, unspecified; I25.2 Old myocardial infarction; I48.0 Paroxysmal atrial fibrillation; K92.2 Gastrointestinal hemorrhage, unspecified; E78.00 Pure hypercholesterolemia, unspecified; Z95.1 Presence of aortocoronary bypass graft; Z95.810 Presence of automatic (implantable) cardiac defibrillator; Z88.8 Allergy status to other drugs, medicaments and biological substances; Z79.01 Long term (current) use of anticoagulants; Z79.899 Other long term (current) drug therapy; Z87.891 Personal history of nicotine dependence

== ENCOUNTER → 2020-10-14 | Outpatient (CLI) | payer OTHER, MEDICARE | LOC: SJCVC 07:59 | PROVIDERS: ATTEND Internal Medicine Cardiovascular Disease | DX: Z51.81 Encounter for therapeutic drug level monitoring (principal); I25.10 Atherosclerotic heart disease of native coronary artery without angina pectoris; I25.5 Ischemic cardiomyopathy; I48.0 Paroxysmal atrial fibrillation; E78.5 Hyperlipidemia, unspecified; I10 Essential (primary) hypertension; Z79.01 Long term (current) use of anticoagulants; Z79.899 Other long term (current) drug therapy; Z87.891 Personal history of nicotine dependence; Z72.89 Other problems related to lifestyle; Z88.8 Allergy status to other drugs, medicaments and biological substances; Z95.810 Presence of automatic (implantable) cardiac defibrillator ==

== ENCOUNTER → 2020-10-14 | Outpatient (CLI) | payer OTHER, MEDICARE | LOC: LAB 07:45 | PROVIDERS: ATTEND Internal Medicine Cardiovascular Disease | DX: Z01.812 Encounter for preprocedural laboratory examination (principal); Z20.822 Contact with and (suspected) exposure to COVID-19 ==

== ENCOUNTER → 2020-10-17 | Outpatient (CLI) | payer OTHER, MEDICARE ==
[~2020-10-17] VITALS: Ht 170.2 cm; Wt 81.6 kg
[2020-10-17 08:17] VITALS: BP 165/75
[2020-10-17 08:33] LABS: ABSOLUTE NEUTROPHILS 4.4 thou/uL (1.4-8.2); BASOPHILS 0.8 % (0.0-2.0); EOSINOPHILS 4.2 % (0.0-3.0); HEMATOCRIT 39.9 % (42.0-52.0); HEMOGLOBIN 13.3 gm/dL (14.0-18.0); LYMPHOCYTES 19.6 % (24.0-44.0); MCH 34.5 pg (26.0-34.0); MCHC 33.4 g/dL (28.0-37.0); MCV 103.1 fL (80.0-100.0); MONOCYTES 12.8 % (1.0-8.0); POLYS 62.6 % (36.0-66.0); RBC 3.87 mil/uL (4.50-6.00); RDW 13.8 % (10.5-14.5)
[2020-10-17 08:43] LABS: CALCIUM 8.9 mg/dL (8.5-10.1); CREATININE 1.2 mg/dL (0.7-1.3)
[2020-10-17 08:48] LABS: ALBUMIN 3.4 g/dL (3.4-5.0); TOTAL BILIRUBIN 0.4 mg/dL (0.2-1.0); TOTAL PROTEIN 7.1 g/dL (6.4-8.2)
[2020-10-17 08:52] LABS: APTT 40.3 Seconds (24.5-32.8); INR 2.34; PROTIME 24.5 Seconds (9.3-11.4)
[2020-10-17 09:16] LABS: PLATELET COUNT 171 thou/uL (150-400)
--- NOTE | 2020-10-21 09:14 | P ---
[facility] [address] PROCEDURE REPORT Name: CHI MENARD Room #: REG ALISTAIR PuriJaileneNicholasJailene#: [id number] Admission: 10/17/20 Attend Phys: Kurt Krishnamurthy MD Discharge: Date of : 50 Report #: [id number] THIS REPORT FOR: cc: Maile Roman Beth RNP Couchonnal, Luis F. MD ~ DATE OF SERVICE: 10/17/2020 PROCEDURE: Generator exchange. PREOPERATIVE DIAGNOSIS: Implantable cardioverter-defibrillator elective replacement indicator. POSTOPERATIVE DIAGNOSIS: Implantable cardioverter-defibrillator elective replacement interval. HISTORY: The patient is a 70-year-old male with a history of ischemic cardiomyopathy, status post mechanical mitral valve for ischemic MR, who is [employer] ICD at the elective replacement interval. He is here for ICD generator exchange. ANESTHESIA: The patient underwent MAC anesthesia with no anesthesia related complications. DESCRIPTION OF PROCEDURE: The patient underwent informed consent. We discussed the details of the procedure including the risks, which include but not limited to bleeding, infection, vascular damage, cardiac perforation, pneumothorax. He understood these risks and was willing to proceed. The patient had an INR performed today and was 2.3 as we wanted him to maintain his anticoagulation regimen to protect from CVA. The patient was brought to EP laboratory in a fasting and sedated state, prepped and draped in a sterile fashion, received IV antibiotics. Next, I injected lidocaine at the prior incision site. Incision was made, the chronic pocket was entered and the old device was disconnected. The newer header was slightly larger, so I did expand the pocket slightly at the superior aspect of the pocket and made sure there was no significant bleeding. I did focus small hole at the bottom of the pocket for drainage of bleeding were to occur. The new device was connected to the old leads and was tested and found to be functioning normally. I did implant a TYRX antibiotic pouch as he is high risk for infection and has a mechanical heart valve. The pocket was then irrigated with vancomycin and then the pocket was closed in 2 layers using 2-0 for the deep layer, 3-0 for the mid layer and surgical glue was placed to outer skin layer. The patient awoke neurologically and hemodynamically intact. No complications and no significant bleeding. The explanted device was a [employer] model # E110, serial #[id number] originally implanted on 01/09/2010. The newly implanted device was a [employer] model was Dynagen, model #D153, [address] [address] PROCEDURE REPORT Name: CHI MENARD ANDREI Room #: REG [facility]#: [id number] Admission: 10/17/20 Attend Phys: Kurt Krishnamurthy MD Discharge: Date of : 50 Report #: [id number] serial #[id number]. The atrial lead was a Loraine Strange, model #4136, serial #[id number], implanted on 01/09/2010. The RV lead was a [employer] Progression, model #0184, serial #[id number]. Atrial lead demonstrated P-wave of 6.3 millivolts, pacing threshold 0.75 volts at 0.4 milliseconds, pacing impedance of 538 ohms. The RV lead demonstrated R waves of 16.1 millivolts, pacing threshold 1.5 volts at 0.4 milliseconds, which is stable, pacing impedance of 454 ohms, shock impedance of 51 ohms. The device was programmed to DDDR 60-130 mode. The VT monitor zone was set at 150-180 beats per minute. The VT zone was set at 180-220 beats per minute with 3 rounds of burst followed by 3 rounds of ramp followed by max output shocks. The VF zone was set at greater than 220 beats per minute with ATP while charging followed by max output shocks. CONCLUSIONS: 1. Successful ICD generator exchange. 2. Satisfactory atrial and ventricular pacing and sensing thresholds, successful implantation of a TYRX antibiotic pouch given the patient's high risk for infection. <ELECTRONICALLY SIGNED> By: Kurt Krishnamurthy MD 10/21/2014 161 51 Kurt Krishnamurthy MD /nt
== END | disposition home or self-care (01) ==
LOC: CATH 07:15
PROVIDERS: ATTEND Internal Medicine Cardiovascular Disease
DX: Z45.02 Encounter for adjustment and management of automatic implantable cardiac defibrillator (principal); I25.5 Ischemic cardiomyopathy; I25.10 Atherosclerotic heart disease of native coronary artery without angina pectoris; I25.2 Old myocardial infarction; I10 Essential (primary) hypertension; E78.5 Hyperlipidemia, unspecified; F32.9 Major depressive disorder, single episode, unspecified; D64.9 Anemia, unspecified; Z95.2 Presence of prosthetic heart valve; Z98.890 Other specified postprocedural states; Z79.899 Other long term (current) drug therapy; Z86.73 Personal history of transient ischemic attack (TIA), and cerebral infarction without residual deficits; Z87.891 Personal history of nicotine dependence; Z79.01 Long term (current) use of anticoagulants

== ENCOUNTER → 2020-10-21 | Outpatient (CLI) | payer OTHER, MEDICARE | LOC: SJCVC 12:13 | PROVIDERS: ATTEND Internal Medicine Cardiovascular Disease | DX: Z51.81 Encounter for therapeutic drug level monitoring (principal); I48.0 Paroxysmal atrial fibrillation; I25.10 Atherosclerotic heart disease of native coronary artery without angina pectoris; K21.9 Gastro-esophageal reflux disease without esophagitis; G47.33 Obstructive sleep apnea (adult) (pediatric); I73.9 Peripheral vascular disease, unspecified; I10 Essential (primary) hypertension; I25.2 Old myocardial infarction; E78.00 Pure hypercholesterolemia, unspecified; I25.5 Ischemic cardiomyopathy; Z95.1 Presence of aortocoronary bypass graft; Z95.810 Presence of automatic (implantable) cardiac defibrillator; Z68.31 Body mass index [BMI] 31.0-31.9, adult; Z79.01 Long term (current) use of anticoagulants; Z79.899 Other long term (current) drug therapy ==

== ENCOUNTER → 2020-10-25 | Outpatient (CLI) | payer OTHER, MEDICARE | LOC: SJCVC 13:23 | PROVIDERS: ATTEND Internal Medicine Cardiovascular Disease | DX: R94.31 Abnormal electrocardiogram [ECG] [EKG] (principal); I11.9 Hypertensive heart disease without heart failure; I25.2 Old myocardial infarction; I25.5 Ischemic cardiomyopathy; I25.10 Atherosclerotic heart disease of native coronary artery without angina pectoris; I48.0 Paroxysmal atrial fibrillation; E78.5 Hyperlipidemia, unspecified; I73.9 Peripheral vascular disease, unspecified; Z95.2 Presence of prosthetic heart valve; Z95.1 Presence of aortocoronary bypass graft; Z95.810 Presence of automatic (implantable) cardiac defibrillator; Z98.890 Other specified postprocedural states; Z88.8 Allergy status to other drugs, medicaments and biological substances; Z79.01 Long term (current) use of anticoagulants; Z79.899 Other long term (current) drug therapy; Z87.891 Personal history of nicotine dependence ==

== ENCOUNTER → 2020-12-13 | Outpatient (CLI) | payer OTHER, MEDICARE | LOC: SJCVC 12:51 | PROVIDERS: ATTEND Internal Medicine Cardiovascular Disease | DX: R94.31 Abnormal electrocardiogram [ECG] [EKG] (principal); I25.5 Ischemic cardiomyopathy; I05.9 Rheumatic mitral valve disease, unspecified; I25.2 Old myocardial infarction; I48.0 Paroxysmal atrial fibrillation; I10 Essential (primary) hypertension; E78.5 Hyperlipidemia, unspecified; I73.9 Peripheral vascular disease, unspecified; I25.10 Atherosclerotic heart disease of native coronary artery without angina pectoris; E78.00 Pure hypercholesterolemia, unspecified; Z95.2 Presence of prosthetic heart valve; Z95.810 Presence of automatic (implantable) cardiac defibrillator; Z95.1 Presence of aortocoronary bypass graft; Z88.8 Allergy status to other drugs, medicaments and biological substances; Z79.01 Long term (current) use of anticoagulants; Z79.899 Other long term (current) drug therapy; Z87.891 Personal history of nicotine dependence ==

== ENCOUNTER → 2020-12-20 | Outpatient (CLI) | payer OTHER, MEDICARE | LOC: SJCVC 08:50 | PROVIDERS: ATTEND Internal Medicine Cardiovascular Disease | DX: D64.9 Anemia, unspecified (principal); I25.10 Atherosclerotic heart disease of native coronary artery without angina pectoris; E78.00 Pure hypercholesterolemia, unspecified; I25.5 Ischemic cardiomyopathy; I73.9 Peripheral vascular disease, unspecified; I48.0 Paroxysmal atrial fibrillation; Z51.81 Encounter for therapeutic drug level monitoring; Z79.01 Long term (current) use of anticoagulants; Z79.899 Other long term (current) drug therapy; Z88.1 Allergy status to other antibiotic agents; Z88.2 Allergy status to sulfonamides; Z87.19 Personal history of other diseases of the digestive system; Z95.1 Presence of aortocoronary bypass graft; Z95.4 Presence of other heart-valve replacement; Z95.810 Presence of automatic (implantable) cardiac defibrillator; Z87.891 Personal history of nicotine dependence; Z72.89 Other problems related to lifestyle ==

== ENCOUNTER → 2021-02-08 | Outpatient (CLI) | payer OTHER, MEDICARE ==
[~2021-02-08] VITALS: Ht 172.7 cm; Wt 81.7 kg
[~2021-02-08] MED LIST changes: +LOVENOX30 MG/0.3 SUBQ; +OMEPRAZOLE 20 M20 M1 PO; +WARFARIN SODIUM5 MG PO; +ZOLPIDEM TARTRA10 MG PO
[2021-02-08 09:15] LABS: INR 1.2; PROTIME 12.1 Seconds (9.3-11.4)
--- NOTE | 2021-02-10 08:14 | P ---
[facility] [place] [address] PROCEDURE REPORT Name: CHI MENARD V Room #: [facility] [id number] Admission: 02/08/21 Attend Phys: Ernie Mazariegos Discharge: Date of : 50 Report #: [id number] THIS REPORT FOR: cc: Maile Roman Beth RNP McElhinney, Christian C. MD ~ cc: MELINA Olivares Jin Park, MD DATE OF SERVICE: 02/08/2021 PROCEDURE PERFORMED: Upper endoscopy with biopsies. HISTORY OF PRESENT ILLNESS: The patient is a 70-year-old male who is well known to me, long history of gastroesophageal reflux disease and Andres's esophagus. Recently, he has had black melanotic type stools. He is unsure what his hemoglobin has been recently. He has a previous history of MT with ____ valve, is on chronic Coumadin therapy. This has been held for the last five days, he has been on Lovenox as a bridge. Plan is for EGD and colonoscopy today. He also has a known history of previous AVMs in the cecum that have been cauterized for GI bleed in the past. DESCRIPTION OF PROCEDURE: The risks and benefits of the procedure were explained to the patient, those risks including but not limited to bleeding, perforation and the risk of sedation. He understood these risks and gave informed consent. Sedation was given using propofol per anesthesia. Next, using a standard Olympus upper endoscope, the scope was placed in the patient's mouth and advanced under direct vision through the esophagus, stomach and into the second portion of the duodenum. The larynx was normal in appearance. The upper esophagus was normal. In the mid and distal esophagus, long segment of Andres's was noted. Multiple biopsies were obtained. No evidence of esophagitis. Upon entering the stomach, a small hiatal hernia was noted. Overall, the gastric mucosa was normal and the fundus and body, a mild gastritis was noted in the antrum. No evidence of ulcers or erosions. No evidence of bleeding throughout the exam. No AVMs were noted on exam today as well. The pylorus was normal and patent. The duodenal bulb, first and second portion were all normal. The scope was then withdrawn and the procedure terminated. The patient tolerated the procedure well. IMPRESSION: 1. Long segment Andres's esophagus. 2. Small hiatal hernia. 3. Mild gastritis. 4. Otherwise, normal upper endoscopy. RECOMMENDATIONS: 1. Await biopsies. [address] [address] PROCEDURE REPORT Name: CHI MENARD V Room #: REG [facility] Juliet#: [id number] Admission: 02/08/21 Attend Phys: Ernie Mazariegos Discharge: Date of : 50 Report #: [id number] 2. Continue daily PPI therapy. 3. We will proceed with colonoscopy next today. Thank you for allowing me to participate in his care. <ELECTRONICALLY SIGNED> By: Ernie Knutson MD 02/10/21 0814 0915 1318 Ernie Knutson MD /nt
--- NOTE | 2021-02-10 08:14 | P ---
[facility] [place] [address] PROCEDURE REPORT Name: CHI MENARD V Room #: [facility] [id number] Admission: 02/08/21 Attend Phys: Ernie Mazariegos Discharge: Date of : 50 Report #: [id number] THIS REPORT FOR: cc: Maile Roman Beth RNP McElhinney, Christian C. MD ~ cc: MELINA Olivares Jin Park, MD DATE OF SERVICE: 02/08/2021 PROCEDURE PERFORMED: Colonoscopy with polypectomies. HISTORY OF PRESENT ILLNESS: The patient is a 70-year-old male with a history of recent melanotic type stools. He has been on chronic Coumadin therapy for history of mitral valve replacement. Coumadin has been held for the last 5 days. He has been on Lovenox as a bridge, unsure what his recent hemoglobin was. He denies any diarrhea or abdominal pain. He has had a known previous history of cecal AVMs with bleeding, cauterized in the past. No family history of colon cancer. Last colonoscopy in which AVMs were cauterized was in 2019. DESCRIPTION OF PROCEDURE: The risks and benefits of the procedure were explained to the patient, those risks including but not limited to bleeding, perforation and the risk of sedation. He understood these risks and gave informed consent. Sedation was given using propofol per anesthesia. Next, a digital rectal exam was initially performed, which was normal. Next, using a standard Olympus colonoscope, the scope was placed to the patient's anus and advanced under direct vision to the cecum. The overall prep was good. The cecum was normal. No evidence of AVMs or abnormalities were noted. In the ascending colon, 2 small 3-4 mm sessile polyps are noted both removed by cold forceps. A few scattered diverticula were noted throughout the transverse, descending and sigmoid colon. In the sigmoid colon, multiple diverticula were noted. In the sigmoid colon also a 6 mm sessile polyp was noted. This was removed by snare cautery. The rectal mucosa was normal. On retroflexion, small nonbleeding internal hemorrhoids were noted. There was no evidence of bleeding throughout the exam today either on EGD or colonoscopy. Scope was then withdrawn and the procedure terminated. The patient tolerated the procedure well. IMPRESSION: 1. Small colonic polyps. 2. Diverticulosis without evidence of bleeding. 3. Internal hemorrhoids. 4. Otherwise, normal colonoscopy. RECOMMENDATIONS: 1. Await biopsy results. [address] [address] PROCEDURE REPORT Name: CHI MENARD Siomara Room #: REG [facility] [id number] Admission: 02/08/21 Attend Phys: Ernie Mazariegos Discharge: Date of : 50 Report #: [id number] 2. Repeat colonoscopy in 5 years. 3. No evidence of bleeding on EGD or colonoscopy today. If the patient has continued dark stools could consider Hemoccult testing stools and/or proceeding with M2 capsule endoscopy. Thank you for allowing me to participate in his care. <ELECTRONICALLY SIGNED> By: Ernie Knutson MD 02/10/21 0814 0919 1324 Ernie Knutson MD /nt
--- NOTE | 2021-02-13 12:06 | PATH ---
[facility] [address] [place] [address] PATHOLOGY RPT PROCEDURE Name: RAAD MARTINEZ Siomara Room #: REG [facility] Irma.#: [id number] Admission: 02/08/21 Date of : 50 Discharge: Report #: [id number] Path Case #: [id number] [facility] Accession Number: [id number] . 01 Material submitted: . PART A: esophagus - DISTAL ESOPHAGUS BX R/O SANTANA'S. Modifiers: distal PART B: colon - ASCENDING COLON POLYP. Modifiers: ascending PART C: sigmoid colon - SIGMOID POLYP . 01 Clinical history: . CHANGE IN BOWEL HABITS HX SANTANA'S . 02 Diagnosis: A. Gastroesophageal mucosa, distal esophagus rule out Santana's, endoscopic biopsy: - Specialized columnar epithelium with intestinal metaplasia, compatible with Santana's metaplasia. - Negative for dysplasia. - Focal squamous mucosa with mild esophagitis. . B. Polyp, ascending colon polyp, endoscopic biopsy: - Tubular adenoma. - Negative for high grade dysplasia. . C. Polyp, sigmoid polyp, endoscopic biopsy: - Tubular adenoma. - Negative for high grade dysplasia. Q 02/10/2021 1752 Local . 02 Comment: The above diagnosis of Santana's esophagus is made due to presence of intestinal metaplasia and with the assumption that the biopsies were obtained from the columnar mucosa in the distal esophagus located at least 1 cm proximal to the top of the gastric folds as per the 2016 ACG guidelines. (IUV/db; 02/10/2021) . 02 Electronically signed: . Aileen Nazario MD, Pathologist NPI- [id number] . 01 Gross description: . A. Received in formalin labeled "Raad Martinez, distal esophageal BX rule out Santana's" are multiple fragments of napoles-brown soft tissue measuring in aggregate 0.8 x 0.7 x 0.1 cm. The specimen [place] entirely [place] [address] PATHOLOGY RPT PROCEDURE Name: RAAD MARTINEZ V Room #: REG [facility]#: [id number] Admission: 02/08/21 Date of : 50 Discharge: Report #: [id number] Path Case #: [id number] . B. Received in formalin labeled "Raad Martinez, ascending colon polyp" are multiple fragments of napoles-brown soft tissue measuring in aggregate 1.2 x 0.5 x 0.1 cm. The specimen is submitted entirely in B1. . C. Received in formalin labeled "Maciejer, Raad, sigmoid polyp" is a fragment of napoles-brown soft tissue measuring 0.7 x 0.5 x 0.3 cm. The margin is inked and the specimen is bisected. The specimen is submitted entirely in C1. ([facility]; 02/09/2021) [facility] 02/09/2021 0918 Local . 02 Pathologist provided ICD-10: K22.70, K20.90, D12.2, D12.5 . 02 CPT . 741708, 845148, 691554 Specimen Comment: A courtesy copy of this report has been sent to [phone], [phone] Specimen Comment: [id number] Specimen Comment: Report sent to / DR FOREMAN Performed at: [address] [id number] MD Yair Sood MD Phone: [phone] Performed at: [address] [id number] MD Aileen Nazario MD Phone: [phone]
== END | disposition home or self-care (01) ==
LOC: GI 06:39
PROVIDERS: ATTEND Specialist
DX: K92.1 Melena (principal); D12.2 Benign neoplasm of ascending colon; D12.5 Benign neoplasm of sigmoid colon; K57.30 Diverticulosis of large intestine without perforation or abscess without bleeding; K64.8 Other hemorrhoids; K21.9 Gastro-esophageal reflux disease without esophagitis; K22.70 Barrett's esophagus without dysplasia; K44.9 Diaphragmatic hernia without obstruction or gangrene; I10 Essential (primary) hypertension; E78.5 Hyperlipidemia, unspecified; I25.2 Old myocardial infarction; F32.9 Major depressive disorder, single episode, unspecified; G47.30 Sleep apnea, unspecified; Z87.891 Personal history of nicotine dependence; Z98.890 Other specified postprocedural states; Z79.899 Other long term (current) drug therapy; Z85.828 Personal history of other malignant neoplasm of skin; Z79.01 Long term (current) use of anticoagulants; Z95.2 Presence of prosthetic heart valve; Z95.1 Presence of aortocoronary bypass graft
CPT/HCPCS: 62110; 62900

== ENCOUNTER → 2021-04-03 | Outpatient (CLI) | payer OTHER, MEDICARE | LOC: SJCVC 11:09 | PROVIDERS: ATTEND Internal Medicine Cardiovascular Disease | DX: R94.31 Abnormal electrocardiogram [ECG] [EKG] (principal); I25.10 Atherosclerotic heart disease of native coronary artery without angina pectoris; I25.5 Ischemic cardiomyopathy; I11.9 Hypertensive heart disease without heart failure; Z95.2 Presence of prosthetic heart valve; Z45.02 Encounter for adjustment and management of automatic implantable cardiac defibrillator; Z79.01 Long term (current) use of anticoagulants; Z79.899 Other long term (current) drug therapy; Z87.891 Personal history of nicotine dependence; Z72.89 Other problems related to lifestyle; Z88.1 Allergy status to other antibiotic agents ==

== ENCOUNTER → 2021-04-04 | Outpatient (CLI) | payer OTHER, MEDICARE | LOC: SJCVC 10:41 | PROVIDERS: ATTEND Internal Medicine Cardiovascular Disease | DX: Z51.81 Encounter for therapeutic drug level monitoring (principal); Z79.01 Long term (current) use of anticoagulants ==

== ENCOUNTER → 2021-04-06 | Outpatient (CLI) | payer OTHER, MEDICARE | LOC: ULTRA 10:52 | PROVIDERS: ATTEND Nurse Practitioner | DX: N50.812 Left testicular pain (principal) ==

== ENCOUNTER → 2021-04-13 | Outpatient (CLI) | payer OTHER, MEDICARE | LOC: SJCVC 08:47 | PROVIDERS: ATTEND Internal Medicine Cardiovascular Disease | DX: Z51.81 Encounter for therapeutic drug level monitoring (principal); K21.9 Gastro-esophageal reflux disease without esophagitis; K22.70 Barrett's esophagus without dysplasia; K64.4 Residual hemorrhoidal skin tags; G47.33 Obstructive sleep apnea (adult) (pediatric); I42.9 Cardiomyopathy, unspecified; I73.9 Peripheral vascular disease, unspecified; I10 Essential (primary) hypertension; I25.10 Atherosclerotic heart disease of native coronary artery without angina pectoris; I25.2 Old myocardial infarction; I05.9 Rheumatic mitral valve disease, unspecified; I25.5 Ischemic cardiomyopathy; I48.0 Paroxysmal atrial fibrillation; I47.2 Ventricular tachycardia; K44.9 Diaphragmatic hernia without obstruction or gangrene; F32.9 Major depressive disorder, single episode, unspecified; G47.00 Insomnia, unspecified; D50.9 Iron deficiency anemia, unspecified; Z45.02 Encounter for adjustment and management of automatic implantable cardiac defibrillator; E78.00 Pure hypercholesterolemia, unspecified; Z95.2 Presence of prosthetic heart valve; Z99.89 Dependence on other enabling machines and devices; Z68.31 Body mass index [BMI] 31.0-31.9, adult; Z91.038 Other insect allergy status; Z68.28 Body mass index [BMI] 28.0-28.9, adult; E66.09 Other obesity due to excess calories; Z79.01 Long term (current) use of anticoagulants; Z88.8 Allergy status to other drugs, medicaments and biological substances; Z95.1 Presence of aortocoronary bypass graft; Z87.891 Personal history of nicotine dependence; Z72.89 Other problems related to lifestyle ==